=== PATIENT | male | born 1955 | race Caucasian/White ===

== ENCOUNTER 2024-06-30 10:29 | Emergency (ER) | payer MEDICARE, SELFPAY ==
[2024-06-30 10:31] VITALS: BP 170/109
[2024-06-30 11:01] LABS: % Basophils 0.7 % (0-2); % Eosinophils 0.6 % (0-6); % Immature Granulocytes 0.3 % (0-0.5); % Lymphocytes 20.1 % (20.5-51.1); % Monocytes 6.8 % (1.7-9.3); % Neutrophils 71.5 % (42.2-75.2); Absolute Basophils 0.1 10^3/uL (0-0.2); Absolute Lymphocytes 1.4 10^3/uL (1.2-3.4); Absolute Monocytes 0.5 10^3/uL (0.1-0.6); Absolute Neutrophils 4.9 10^3/uL (1.4-6.5); Hematocrit 43.3 % (39.0-52.0); Hemoglobin 15.2 g/dL (13.0-18.0); Mean Corp Hgb Conc. 35.1 g/dL (33.0-37.0); Mean Corpuscular Hgb 31.9 pg (27.0-31.0); Mean Corpuscular Volume 90.8 fL (80.0-94.0); Mean Platelet Volume 10.2 fL (7.4-10.4); Nucleated Red Blood Cells % 0 % (-); Platelet Count 310 10^3/uL (130-400); Red Blood Cell Count 4.77 10^6/uL (4.70-6.10); Red Cell Dist. Width 11.9 % (11.5-14.5); White Blood Cell Count 6.9 10^3/uL (4.8-10.8)
--- NOTE | 2024-06-30 11:07 | ED.GENMED ---
History of Present Illness
General
Chief Complaint: Abdominal Pain
Time Seen by Provider: 06/30/24 10:47
History of Present Illness
History of Present Illness:
68-year-old male presents to the emergency department for evaluation of lower abdominal pain for the past 2 to 3 weeks. He was initially seen by his primary care physician on June 12 at which time he complained of urinary urgency as well and
was diagnosed with presumptive prostatitis, he was placed on a 10-day course of Bactrim. He states that during this time his symptoms worsened he was having increasing heartburn as well. Due to worsening symptoms and lack of outpatient CT
availabilities he was referred to the emergency department today. Prior abdominal surgeries include a inguinal hernia repair as a child. Denies any fevers or chills.
Review of Systems
Review of Systems
Allergies reviewed?: Yes
All Other Systems: ROS reviewed and negative except as documented in HPI and ROS
Phy Exam
Physical Exam
Physical Exam:
GEN: Well appearing, NAD, WDWN
HEENT: Oral mucosa moist, no scleral icterus
Cardiac: Regular rate
Lung: No respiratory distress, no tachypnea
Abdomen: Soft, grossly nontender, no rigidity
MSK: No gross deformity or injuries
Skin: Good color, no pallor or jaundice, no rashes
Neuro: AO x3, moves all extremities freely
Psych: Calm, cooperative
Course
Orders/Labs/Results
Orders:
Orders
06/30/24 10:49
IV Insert/Care/Rem.- Treatment PRN
06/30/24 10:55
Complete Blood Count/With Diff Urgent
Comprehensive Metabolic Panel Urgent
Lipase Urgent
Urinalysis Reflex To Culture Urgent
Date Specimen was Collected: 06/30/24
Time Specimen was Collected: 10:49
06/30/24 11:06
CT Abd/Pel (IV only)-DH only Urgent
Comment:
Reason For Exam: LLQ pain
Abnormal Lab Results
06/30/24
10:55
MCH 31.9 H pg
(27.0-31.0)
Lymphocytes % 20.1 L %
(20.5-51.1)
Glucose 100 H mg/dl
(70-99)
Urine Ketones 1+ A
(Negative)
06/30/24 10:55
06/30/24 10:55
Vital Signs
Initial and Last Documented VS:
Initial Vital Signs
Temp Pulse Resp BP Pulse Ox
98.1 F 96 18 170/109 100
06/30/24 10:31 06/30/24 10:31 06/30/24 10:31 06/30/24 10:31 06/30/24 10:31
Last Documented Vital Signs
Temp Pulse Resp BP Pulse Ox
98.1 F 96 18 132/79 100
06/30/24 10:31 06/30/24 10:31 06/30/24 10:31 06/30/24 12:18 06/30/24 10:31
MDM/Problems Addressed
MDM/Problems Addressed:
Unfortunately patient CT reveals a large left renal mass that is likely renal cell carcinoma. This is presumably the cause of his symptoms and is no alternative etiologies are found. I discussed the findings with urology on-call who recommended
the patient follow-up with [facility] given the size of the mass. I also communicated these findings to his primary care physician to help facilitate outpatient management
*Critical Care Note
Total Time (30-74mins, 75-104mins- exclusive of procedures): Not Applicable
ED Attending Note
-
Portions of this chart may have been created with voice recognition software.� Occasional wrong word or��sound alike� substitutions may have occurred due to the inherent limitations of voice recognition software.
Discharge Plan
Departure
Patient Disposition: Home (Routine Discharge)
Date of Disposition: 06/30/24
Time of Disposition: 12:42
Patient with high blood pressure during this ER visit?: Yes
Discharge Problem:
Renal cell carcinoma of left kidney
Instructions: Kidney cancer
Referrals:
Rivas Barakat Jr., MD [Active] -
Ronan Umanzor MD [Non-Admitting Privileges] - ( )
Abi Zheng PA [Family Provider] -
Interventions
Interventions:
*Risk Screen - Suicide Last Done: 06/30/24 13:00
*General Assessment Last Done: 06/30/24 13:00
*Neglect/Abuse Screening Last Done: 06/30/24 13:00
ED- Fall Risk Assessment Last Done: 06/30/24 11:25
*Nursing Disposition Last Done: 06/30/24 13:00
DU-Lqqjia-Fydjhmilrt Assessment Last Done: 06/30/24 11:25
Discharge Date and Time
Discharge Date/Time: 06/30/24 13:07
Print Language: BULGARIAN
[2024-06-30 11:21] LABS: ALT (SGPT) 20 U/L (0-50); AST (SGOT) 24 U/L (17-59); Albumin 4.4 g/dl (3.5-5.0); Alkaline Phosphatase 66 U/L (38-126); Blood Urea Nitrogen 13 mg/dl (9-20); Calcium 9.6 mg/dl (8.4-10.2); Carbon Dioxide 23 mmol/L (22-30); Chloride 104 mmol/L (98-107); Glucose 100 mg/dl (70-99); Lipase 203 U/L (23-300); Sodium 142 mmol/L (135-145); Total Bilirubin 0.8 mg/dl (0.2-1.3); Total Protein 6.9 g/dl (6.3-8.2); eGFR > 60.00
[2024-06-30 11:25] VITALS: BMI 32.5
[2024-06-30 12:07] LABS: Urine Albumin Negative (Neg - Trace); Urine Bilirubin Negative (Negative); Urine Character Clear (Clear); Urine Color Yellow; Urine Glucose Negative (Negative); Urine Ketone 1+ (Negative); Urine Leukocyte Negative (Negative); Urine Nitrite Negative (Negative); Urine Occult Blood Negative (Negative); Urine Urobilinogen Negative (Neg - 1+)
[2024-06-30 12:18] VITALS: BP 132/79
== END 2024-06-30 13:07 | disposition home or self-care (01) ==
LOC: EMR 10:29
PROVIDERS: Physician Assistant; EMERGENCY PHYSICIAN Emergency Medicine; FAMILY PHYSICIAN Family Medicine
DX: C64.2 Malignant neoplasm of left kidney, except renal pelvis (principal)
CPT/HCPCS: 99284; 74177; 80053; 81003; 83690; 85025; Q9967